=== PATIENT | female | born 1985 | race Caucasian/White ===

== ENCOUNTER 2017-01-26 16:08 | Inpatient (IN) | payer OTHER ==
[~2017-01-26] VITALS: Ht 157.5 cm; Wt 69.8 kg
--- NOTE | ~2017-01-26 | OR ---
PATIENT'S NAME: [facility] AGE: 31 Y [address] ROOM: [place] [address] LOCATION: [facility]BS ADMIT DATE: 01/26/2017 OR/Procedure Report DISCHARGE DATE: 01/28/2017 FAMILY PHYSICIAN: Yoon Tafoya MD ATTENDING PHYSICIAN: Sally West SURGEON: Sally West MD MICA INSPECTOR: DATE OF PROCEDURE: 01/26/2017 INDICATIONS: This is a 31-year-old 5, para 3-0-1-3, who presents in labor at 37 weeks' gestation. She has seen Dr. Russell for her care. She is GBS positive and penicillin G is started right away upon admission. She has a history of an abruption with a 22-week delivery at last . Otherwise, she has had precipitous spontaneous vaginal deliveries at near term. DESCRIPTION OF PROCEDURE: She had a labor epidural placed. After the labor epidural was placed, I ruptured her membranes and she quickly went to complete and pushed through one contraction. She delivered the vertex in the KENNETH position. Shoulders and body were easily delivered. Baby girl was placed on maternal abdomen. Her cord was doubly clamped and cut. She received scores of 8 and 9. A 3-vessel cord was noted, and placenta was delivered spontaneously and intact. Again, 3-vessel cord was noted. Cervix and vagina were intact. Perineum and periurethral regions were intact. Mom and baby girl are doing well in recovery. Baby weighed 7 pounds 5 ounces with scores of 8 and 9. SALLY WEST MD KHP/modl /[id number] d: t: 02/04/17 1546, OPERATIVE SUMMARY
[~2017-01-26 16:08] MED LIST: PROBIOTIC1 EAC1 PO; THERA-VITE W/ B1 TAB PO
[2017-01-26] MEDS ORDERED: ASPIR-LOW81 MG PO (16:45)
[2017-01-26 16:55] LABS: BASOPHIL % 0.3 %; EOSINOPHIL # 0.1 K/uL (0.0-0.5); EOSINOPHIL % 0.7 %; HEMATOCRIT 34.8 % (33.0-46.0); HEMOGLOBIN 11.9 g/dL (11.0-15.0); IMMATURE GRANULOCYTE # 0.1 K/uL (0.0-0.3); IMMATURE GRANULOCYTE % 0.9 %; LYMPHOCYTE # 1.5 K/uL (0.8-4.0); LYMPHOCYTE % 15.7 %; MCH 28.8 pg (27.0-34.0); MCHC 34.2 gm/dL (32.0-36.5); MCV 84.3 fl (83.0-98.0); MONOCYTE # 0.8 K/uL (0.0-1.0); MONOCYTE % 8.2 %; MPV 11.1 fl (9.4-12.4); NEUTROPHIL # (ANC) 7.1 K/uL (1.8-7.8); NEUTROPHIL % 74.2 %; NRBC % 0 /100WBC (0-0.00); PLATELET COUNT 197 K/uL (150-450); RBC 4.13 M/uL (3.50-5.50); RDW-CV 13.2 % (11.9-14.6); WBC 9.5 K/uL (4.0-11.0)
--- NOTE | 2017-01-27 05:41 | NUR ---
01/27/17 0540: VOIDING WELL, TYLENOL LAST AT 0415, 1 PERCOCET AT 0515, AND MOTRIN AT 0600. WELL. VITALS STABLE.
[2017-01-27 08:23] LABS: BASOPHIL % 0.3 %; EOSINOPHIL # 0.1 K/uL (0.0-0.5); EOSINOPHIL % 0.5 %; HEMATOCRIT 29.1 % (33.0-46.0); HEMOGLOBIN 9.9 g/dL (11.0-15.0); IMMATURE GRANULOCYTE # 0.1 K/uL (0.0-0.3); LYMPHOCYTE # 1.2 K/uL (0.8-4.0); LYMPHOCYTE % 10.8 %; MCH 28.9 pg (27.0-34.0); MCV 85.1 fl (83.0-98.0); MONOCYTE % 9.1 %; MPV 10.7 fl (9.4-12.4); NEUTROPHIL % 78.3 %; NRBC % 0 /100WBC (0-0.00); PLATELET COUNT 157 K/uL (150-450); RBC 3.42 M/uL (3.50-5.50); RDW-CV 13.2 % (11.9-14.6); WBC 11.5 K/uL (4.0-11.0)
--- NOTE | 2017-01-28 05:14 | NUR ---
Last VS: T:98.6 P:73 R: 16 BP: 138/80 Pain ratin. Last pain med: Percocet/MOTRIN Medicated at: 0130/2330 Effective: Sleeping Breasts: SOFT Nipples: ERRECT Fundus: FIRM 2 DOWN Lochia: RUBRA Epis/Perineum:TENDER Voiding well: YES Significant event: VOIDING WELL, V/S STABLE. AMBULATES IN ROOM. BREAST FEEDING INFANT EVER 3-4 HOURS WITHOUT DIFFICULTY.
[2017-01-28] MEDS ORDERED: PRENATAL 1+1)(P1 TAB PO (15:27)
[2017-01-28] MEDS ORDERED: MOTRIN800 MG PO (15:28)
[2017-01-28] MEDS ORDERED: PERCOCET 5-3251 EACH PO (15:29)
--- NOTE | 2017-01-28 17:13 | NUR ---
Significant Event: Follow up: [facility]SS, to be dismissed after 1999, GBS +. papers typed, needs instructions, & videos sheet signed, update last med times onn discharge sheet. Meedicated with Motrin @ 2936, percocet 2) @ 9068.
== END 2017-01-28 20:35 | disposition disaster alternative care site (69) | DRG 775 ==
LOC: GOBS 16:08 → GOBM 16:08 → GOBS 16:44
PROVIDERS: ADMIT Obstetrics & Gynecology
PROC: 10E0XZZ Delivery of Products of Conception, External Approach (ICD-10-PCS; principal; 2017-01-26)
DX: O99.824 Streptococcus B carrier state complicating childbirth (principal); Z37.0 Single live birth; Z3A.37 37 weeks gestation of pregnancy
CPT/HCPCS: J2001; J2540; J2590; J3010; J7120